=== PATIENT | male | born 1960 | race Caucasian/White ===

== ENCOUNTER 2019-12-21 14:37 | Inpatient (IN) | payer MEDICAID ==
[~2019-12-21] VITALS: Ht 172.7 cm; Wt 79.6 kg
--- NOTE | 2019-12-21 14:41 | NUR ---
PT BIB EMS with C/O back pain that radiates to his chest. pt states that he moved to [facility] 2 months ago and began "having lots of trouble" pt changed into hospital gown and connected to monitors. Call light within reach.
--- NOTE | 2019-12-21 16:28 | NUR ---
lab and xray at bedside.
[2019-12-21 16:39] LABS: MEAN CORPUSCULAR HEMOGLOBIN 27.5 pg (27.5-34.5); MEAN CORPUSCULAR VOLUME 85.8 fL (81-97); MEAN PLATELET VOLUME 7.5 fL (7.4-10.4); PLATELET COUNT 399 x10^3/uL (130-400); RED BLOOD COUNT 4.86 x10^6/uL (4.38-5.82); RED CELL DISTRIBUTION WIDTH 16.4 % (9.4-14.8)
[2019-12-21 16:44] LABS: ALANINE AMINOTRANSFERASE 45 U/L (12-78); ALBUMIN 3.1 g/dL (3.4-5.0); ANION GAP 7 mmol/L (5-15); CALCIUM 9.3 mg/dL (8.5-10.1); CHLORIDE 109 mmol/L (98-107)
[2019-12-21 16:49] LABS: ALKALINE PHOSPHATASE 106 U/L (45-117); BILIRUBIN,TOTAL 0.5 mg/dL (0.2-1.0); TOTAL PROTEIN 7.6 g/dL (6.4-8.2); TROPONIN I < 0.015 ng/mL (0.000-0.045)
[2019-12-21 17:05] LABS: BASOPHILS # (AUTO) 0.09 x10^3/uL (0-0.1); BASOPHILS % (AUTO) 1 % (0-1); EOSINOPHILS # (AUTO) 0.01 x10^3/uL (0-0.4); EOSINOPHILS % (AUTO) 0 % (1-7); LYMPHOCYTES # (AUTO) 1.64 x10^3/uL (1-3.4); LYMPHOCYTES % (AUTO) 10 % (22-44); MD SCAN; MONOCYTES # (AUTO) 1.06 x10^3/uL (0.2-0.8); MONOCYTES % (AUTO) 6 % (2-9); NEUTROPHILS # (AUTO) 14.17 x10^3/uL (1.8-6.8); NEUTROPHILS % (AUTO) 84 % (42-75)
[2019-12-21] MEDS ORDERED: AZITHROMYCIN 500 MG in SODIUM CHLORIDE 0.9% 250 ML IV ONE (17:11)
--- NOTE | 2019-12-21 18:53 | NUR ---
BEDSIDE REPORT FROM ADE GIRON, PT CARE TRANSFERRED AT THIS TIME.
--- NOTE | 2019-12-21 19:15 | NUR ---
RN TO BEDSIDE TO UPDATE PT ON POC. PT COMPLAINING OF 10/10 PAIN AT THIS TIME. PT SITTING UP IN [facility], YELLING AT THIS RN "WELL SHE TOLD ME SHE WAS GONNA GET SOMETHING FOR ME!!! AND THEN SHE JUST BYPASSED ME" THIS RN INFORMED PT SHE WOULD LOOK INTO GETTING HIM SOMETHING FOR PAIN. NAD, WAITING FOR ADMIT BED. WCTM.
[2019-12-21] MEDS ORDERED: PREG150C PO (19:37)
[2019-12-21] MEDS ORDERED: HYDR-3245 PO (19:37)
[2019-12-21] MEDS ORDERED: LISI-170 PO (19:37)
[2019-12-21] MEDS ORDERED: ALBU0.63 NEB (19:42)
--- NOTE | 2019-12-21 19:42 | NUR ---
report called to bri woodward, pt care to be transferred once arriving to the floor. pt states he began to feel more SOB, pt O2 sats at 95%, placed on 2L NC for comfort. PAT.
[2019-12-21] MEDS ORDERED: HYDROmorphone 1 MG/ML, 1ML INJ ONE (19:52)
--- NOTE | 2019-12-21 19:57 | NUR ---
pt medicated per mar for pain, ready to transfer to floor at this time. nad. appears comfortable, denies additional SOB at this time. WCTM.
[2019-12-21] MEDS ORDERED: HYDROmorphone 2 MG/ML, 1ML IVPush PRN (20:00)
[2019-12-21] MEDS: AZITHROMYCIN 500 MG in SODIUM CHLORIDE 0.9% 250 ML IV SCH (20:05)
--- NOTE | 2019-12-21 20:28 | NUR ---
pt now to go to normal floor and no longer covid unit. pt updated on poc. wctm. waiting for bed.
--- NOTE | 2019-12-21 20:29 | NUR ---
pt states pain is decreased at this time. wctm.
[2019-12-21] MEDS ORDERED: BISACODYL 10 MG SUPP PR PRN (20:30)
[2019-12-21] MEDS ORDERED: ACETAMINOPHEN 325 MG TABLET PO PRN (20:30)
[2019-12-21] MEDS ORDERED: ONDANSETRON ODT 4 MG PO PRN (20:30)
[2019-12-21] MEDS ORDERED: hydrALAzine 20 MG/ML, 1ML IVPush PRN (20:30)
[2019-12-21] MEDS ORDERED: GUAIFENESIN/DM 200-20MG, 10ML UDC PO PRN (20:30)
[2019-12-21] MEDS ORDERED: POLYETHYLENE GLYCOL 17 GM PACKET PO PRN (20:30)
[2019-12-21] MEDS ORDERED: HEPARIN 5,000 UNITS/ML, 1ML ONE (20:51)
[2019-12-21] MEDS ORDERED: LISINOPRIL 20 MG TABLET ONE (20:51)
[2019-12-21] MEDS ORDERED: NS + 20MEQ KCL 1,000 ML IV ONE (20:52)
[2019-12-21] MEDS: NS + 20MEQ KCL 1,000 ML IV SCH (21:01)
[2019-12-21] MEDS: HEPARIN 5,000 UNITS/ML, 1ML SQ SCH (21:01)
[2019-12-21] MEDS: LISINOPRIL 20 MG TABLET PO SCH (21:01)
--- NOTE | 2019-12-21 21:09 | NUR ---
pt medicated per jun,, waiting for transfer to floor, this rn attempted to call report 2 times at this point. pt VSHay. PAT.
--- NOTE | 2019-12-21 21:11 | NUR ---
pt given coffee per request. no change in condition at this time. wctm.
--- NOTE | 2019-12-21 21:27 | NUR ---
report called to travis woodward, pt care to be transferred upon arrival to the floor.
[2019-12-21 21:37] VITALS: BP 156/84
[2019-12-21] MEDS: HYDROcodone/APAP 10/325 MG TABLET PO PRN (22:21)
[2019-12-21] MEDS: PREGABALIN 150 MG CAPSULE PO SCH (23:02)
[2019-12-22] MEDS: ALBUTEROL-IPRATROPIUM MDI INH INH SCH ×5 (01:21→20:55)
[2019-12-22 02:00] VITALS: BP 127/69
[2019-12-22] MEDS: HEPARIN 5,000 UNITS/ML, 1ML SQ SCH ×3 (04:40→20:53)
[2019-12-22] MEDS: HYDROcodone/APAP 10/325 MG TABLET PO PRN ×4 (04:41→22:17)
[2019-12-22 05:53] LABS: BASOPHILS # (AUTO) 0.05 x10^3/uL (0-0.1); BASOPHILS % (AUTO) 0 % (0-1); EOSINOPHILS # (AUTO) 0.22 x10^3/uL (0-0.4); EOSINOPHILS % (AUTO) 2 % (1-7); LYMPHOCYTES # (AUTO) 2.33 x10^3/uL (1-3.4); LYMPHOCYTES % (AUTO) 16 % (22-44); MD NO; MEAN CORPUSCULAR HEMOGLOBIN 27.5 pg (27.5-34.5); MEAN PLATELET VOLUME 7.8 fL (7.4-10.4); MONOCYTES # (AUTO) 1.41 x10^3/uL (0.2-0.8); MONOCYTES % (AUTO) 10 % (2-9); NEUTROPHILS # (AUTO) 10.51 x10^3/uL (1.8-6.8); NEUTROPHILS % (AUTO) 72 % (42-75); PLATELET COUNT 340 x10^3/uL (130-400); RED BLOOD COUNT 4.33 x10^6/uL (4.38-5.82); RED CELL DISTRIBUTION WIDTH 16.8 % (9.4-14.8)
[2019-12-22 06:03] LABS: ANION GAP 6 mmol/L (5-15); CALCIUM 9.1 mg/dL (8.5-10.1); CHLORIDE 110 mmol/L (98-107)
[2019-12-22 06:04] LABS: CREATININE 0.63 mg/dL (0.7-1.3)
[2019-12-22] MEDS: NS + 20MEQ KCL 1,000 ML IV SCH ×2 (06:04→18:02)
[2019-12-22 07:44] VITALS: BP 151/76
[2019-12-22 08:27] VITALS: BP 166/90
[2019-12-22] MEDS: SENNA/DOCUSATE TABLET PO SCH (08:28)
[2019-12-22] MEDS: LISINOPRIL 20 MG TABLET PO SCH ×2 (08:28→20:54)
[2019-12-22] MEDS: PREGABALIN 150 MG CAPSULE PO SCH ×2 (08:28→20:53)
[2019-12-22] MEDS: GUAIFENESIN ER 600 MG TABLET PO SCH ×2 (08:55→20:53)
[2019-12-22 14:13] VITALS: BP 150/87
[2019-12-22 19:19] VITALS: BP 167/92
[2019-12-22] MEDS: AZITHROMYCIN 500 MG in SODIUM CHLORIDE 0.9% 250 ML IV SCH (20:53)
[2019-12-23] MEDS: NS + 20MEQ KCL 1,000 ML IV SCH (03:58)
[2019-12-23 04:12] VITALS: BP 188/110
[2019-12-23] MEDS: HYDROcodone/APAP 10/325 MG TABLET PO PRN ×4 (04:17→18:42)
[2019-12-23] MEDS: ALBUTEROL-IPRATROPIUM MDI INH INH SCH ×4 (04:20→21:58)
[2019-12-23] MEDS: HEPARIN 5,000 UNITS/ML, 1ML SQ SCH ×2 (04:20→12:47)
[2019-12-23 05:06] VITALS: BP 168/101
[2019-12-23 06:13] VITALS: BP 138/81
[2019-12-23] MEDS ORDERED: VANCOMYCIN PER PHARMACY MC PRN (08:30)
[2019-12-23] MEDS: LISINOPRIL 20 MG TABLET PO SCH ×2 (09:06→21:00)
[2019-12-23] MEDS: GUAIFENESIN ER 600 MG TABLET PO SCH ×2 (09:06→21:00)
[2019-12-23] MEDS: PREGABALIN 150 MG CAPSULE PO SCH ×2 (09:06→21:00)
[2019-12-23] MEDS: SENNA/DOCUSATE TABLET PO SCH (09:07)
[2019-12-23] MEDS ORDERED: CEFTRIAXONE PMX 2GM/50ML 50 ML IV SCH (09:30)
[2019-12-23] MEDS ORDERED: PHARMACOKINETIC MONITORING MC PRN (09:30)
[2019-12-23] MEDS ORDERED: PHARMACOKINETIC CONSULTATION MC ONE (09:30)
[2019-12-23] MEDS ORDERED: VANCOMYCIN 1,900 MG in SODIUM CHLORIDE 0.9% 250 ML IV ONE (10:00)
[2019-12-23 10:01] LABS: BASOPHILS # (AUTO) 0.02 x10^3/uL (0-0.1); BASOPHILS % (AUTO) 0 % (0-1); EOSINOPHILS # (AUTO) 0.18 x10^3/uL (0-0.4); EOSINOPHILS % (AUTO) 2 % (1-7); LYMPHOCYTES # (AUTO) 1.51 x10^3/uL (1-3.4); LYMPHOCYTES % (AUTO) 13 % (22-44); MD NO; MEAN CORPUSCULAR HEMOGLOBIN 27.3 pg (27.5-34.5); MEAN CORPUSCULAR HGB CONC 31.6 g/dL (33.2-36.2); MEAN CORPUSCULAR VOLUME 86.6 fL (81-97); MEAN PLATELET VOLUME 7.3 fL (7.4-10.4); MONOCYTES % (AUTO) 9 % (2-9); NEUTROPHILS # (AUTO) 8.74 x10^3/uL (1.8-6.8); NEUTROPHILS % (AUTO) 76 % (42-75); PLATELET COUNT 344 x10^3/uL (130-400); RED BLOOD COUNT 4.51 x10^6/uL (4.38-5.82); RED CELL DISTRIBUTION WIDTH 16.4 % (9.4-14.8)
[2019-12-23] MEDS ORDERED: KETOROLAC 30 MG/1 ML IM PRN (13:00)
[2019-12-23 14:00] VITALS: BP 173/77
[2019-12-23] MEDS: CYCLOBENZAPRINE 10 MG TABLET PO SCH ×2 (15:56→21:00)
[2019-12-23] MEDS ORDERED: GADOTERATE 7.5 MMOL/15 ML SYR ONE (18:20)
[2019-12-23 19:13] VITALS: BP 176/100
[2019-12-23 20:14] VITALS: BP 168/88
[2019-12-23 20:25] LABS: INTERNATIONAL NORMALIZED RATIO 1.01 (0.93-1.1); PROTHROMBIN TIME 10.4 Seconds (9.6-11.5)
[2019-12-23] MEDS: POLYETHYLENE GLYCOL 17 GM PACKET NG SCH (21:00)
[2019-12-23] MEDS: KETOROLAC 30 MG/1 ML IVPush PRN (22:47)
[2019-12-23] MEDS: DEXAMETHASONE 10 MG in SODIUM CHLORIDE 0.9% 50 ML IV ONE (23:57)
[2019-12-24] MEDS: DEXAMETHASONE 10 MG in SODIUM CHLORIDE 0.9% 50 ML IV ONE
[2019-12-24] MEDS: VANCOMYCIN 1,500 MG in SODIUM CHLORIDE 0.9% 250 ML IV SCH ×2 (00:16→22:38)
[2019-12-24] MEDS: NS + 20MEQ KCL 1,000 ML IV SCH (00:16)
[2019-12-24 02:36] VITALS: BP 168/77
[2019-12-24] MEDS: ALBUTEROL-IPRATROPIUM MDI INH INH SCH ×3 (06:06→19:17)
[2019-12-24] MEDS: KETOROLAC 30 MG/1 ML IVPush PRN (06:40)
[2019-12-24 07:58] VITALS: BP 173/98
[2019-12-24] MEDS ORDERED: EPINEPHRINE 1 MG/ML, 1ML ONE (08:02)
[2019-12-24] MEDS ORDERED: VANCOMYCIN 1,000 MG ONE ×2 (08:02→10:40)
[2019-12-24] MEDS ORDERED: THROMBIN 5,000 UNIT VIAL TP ONE (08:02)
[2019-12-24] MEDS ORDERED: BACITRACIN 50,000 UNIT ONE (08:02)
[2019-12-24] MEDS ORDERED: BUPIVACAINE/PF 0.25% ONE (08:02)
[2019-12-24] MEDS: POLYETHYLENE GLYCOL 17 GM PACKET NG SCH ×2 (08:29→22:03)
[2019-12-24] MEDS: CYCLOBENZAPRINE 10 MG TABLET PO SCH ×3 (08:29→22:04)
[2019-12-24] MEDS: GUAIFENESIN ER 600 MG TABLET PO SCH ×2 (08:29→22:04)
[2019-12-24] MEDS: LISINOPRIL 20 MG TABLET PO SCH ×2 (08:30→22:04)
[2019-12-24] MEDS: PREGABALIN 150 MG CAPSULE PO SCH ×2 (08:30→22:04)
[2019-12-24] MEDS: SENNA/DOCUSATE TABLET PO SCH (08:30)
[2019-12-24] MEDS ORDERED: MORPHINE SULFATE 4 MG/ML, 1ML IVPush PRN (09:00)
[2019-12-24] MEDS ORDERED: CHLORHEXIDINE 15 ML UDC MM ONE (09:30)
[2019-12-24] MEDS ORDERED: MIDAZOLAM 1 MG/ML, 2ML ONE (09:51)
[2019-12-24] MEDS ORDERED: CHLORHEXIDINE 15 ML UDC ONE (09:51)
[2019-12-24] MEDS ORDERED: FENTANYL PF 250 MCG/5ML ONE (09:52)
[2019-12-24] MEDS ORDERED: PHENYLEPHRINE 10 MG/ML ONE (10:12)
[2019-12-24] MEDS ORDERED: HYDROmorphone 1 MG/ML, 1ML INJ IVPush PRN (10:30)
[2019-12-24] MEDS ORDERED: HYDROcodone/APAP 7.5-325MG/15ML UDC PO PRN (10:30)
[2019-12-24] MEDS ORDERED: LABETALOL 5MG/ML, 20ML IV PRN (10:30)
[2019-12-24] MEDS ORDERED: MEPERIDINE/PF 25MG/0.5ML IVPush PRN (10:30)
[2019-12-24] MEDS: CEFTRIAXONE PMX 2GM/50ML 50 ML IV SCH ×2 (10:30→22:04)
[2019-12-24] MEDS ORDERED: ONDANSETRON 2MG/ML, 2ML IVPush PRN (10:30)
[2019-12-24] MEDS ORDERED: morphine SULFATE 10 MG/ML, 1ML IVPush PRN (10:30)
[2019-12-24] MEDS ORDERED: hydrALAzine 20 MG/ML, 1ML IV PRN (10:30)
[2019-12-24] MEDS ORDERED: PROPOFOL 10 MG/ML, 20ML ONE (11:02)
[2019-12-24] MEDS ORDERED: NEOSTIGMINE 1 MG/ML, 10ML ONE (11:02)
[2019-12-24] MEDS ORDERED: GLYCOPYRROLATE 0.2MG/1ML, 5ML ONE (11:02)
[2019-12-24] MEDS ORDERED: CEFAZOLIN 1,000 MG ONE (11:02)
[2019-12-24] MEDS ORDERED: ROCURONIUM 10MG/ML,5ML ONE (11:02)
[2019-12-24] MEDS ORDERED: NEOSPORIN OINT, 15GM ONE (12:58)
[2019-12-24] MEDS ORDERED: FENTANYL PF 100 MCG/2ML ONE (13:42)
[2019-12-24] MEDS ORDERED: HYDROcodone/APAP 7.5-325MG/15ML UDC ONE (13:42)
[2019-12-24] MEDS: FENTANYL PF 100 MCG/2ML IV PRN ×2 (13:44→14:04)
[2019-12-24 15:00] VITALS: BP 125/79
[2019-12-24] MEDS: MORPHINE SULFATE 4 MG/ML, 1ML IVPush PRN ×2 (18:02→20:17)
[2019-12-24] MEDS: SODIUM CHLORIDE 0.9% 1,000 ML IV SCH (18:05)
[2019-12-24 20:19] VITALS: BP 132/78
[2019-12-24] MEDS ORDERED: METHOCARBAMOL 750 MG TABLET PO SCH (21:00)
[2019-12-24] MEDS ORDERED: CEFTRIAXONE PMX 2GM/50ML 50 ML IV SCH (22:00)
[2019-12-24] MEDS: HYDROcodone/APAP 10/325 MG TABLET PO PRN (22:09)
[2019-12-25 01:12] VITALS: BP 150/81
[2019-12-25] MEDS: MORPHINE SULFATE 4 MG/ML, 1ML IVPush PRN (01:21)
[2019-12-25 04:15] VITALS: BP 121/83
[2019-12-25] MEDS: HYDROcodone/APAP 10/325 MG TABLET PO PRN ×4 (04:22→19:31)
[2019-12-25] MEDS: SODIUM CHLORIDE 0.9% 1,000 ML IV SCH ×2 (04:23→19:31)
[2019-12-25 05:50] LABS: BASOPHILS # (AUTO) 0.01 x10^3/uL (0-0.1); BASOPHILS % (AUTO) 0 % (0-1); EOSINOPHILS # (AUTO) 0.35 x10^3/uL (0-0.4); EOSINOPHILS % (AUTO) 3 % (1-7); LYMPHOCYTES # (AUTO) 1.65 x10^3/uL (1-3.4); LYMPHOCYTES % (AUTO) 12 % (22-44); MD NO; MEAN CORPUSCULAR HEMOGLOBIN 27.6 pg (27.5-34.5); MEAN CORPUSCULAR HGB CONC 32.1 g/dL (33.2-36.2); MEAN CORPUSCULAR VOLUME 86.1 fL (81-97); MEAN PLATELET VOLUME 7.7 fL (7.4-10.4); MONOCYTES # (AUTO) 0.93 x10^3/uL (0.2-0.8); MONOCYTES % (AUTO) 7 % (2-9); NEUTROPHILS # (AUTO) 10.31 x10^3/uL (1.8-6.8); NEUTROPHILS % (AUTO) 78 % (42-75); PLATELET COUNT 324 x10^3/uL (130-400); RED BLOOD COUNT 3.95 x10^6/uL (4.38-5.82); RED CELL DISTRIBUTION WIDTH 16.6 % (9.4-14.8)
[2019-12-25 05:57] LABS: ALBUMIN 2.4 g/dL (3.4-5.0); ANION GAP 6 mmol/L (5-15); CALCIUM 8.7 mg/dL (8.5-10.1); CHLORIDE 106 mmol/L (98-107)
[2019-12-25] MEDS: ALBUTEROL-IPRATROPIUM MDI INH INH SCH ×4 (06:07→20:58)
[2019-12-25 06:09] LABS: ALANINE AMINOTRANSFERASE 31 U/L (12-78); ALKALINE PHOSPHATASE 78 U/L (45-117); BILIRUBIN,TOTAL 0.6 mg/dL (0.2-1.0); CREATININE 0.66 mg/dL (0.7-1.3); TOTAL PROTEIN 6.1 g/dL (6.4-8.2)
[2019-12-25 08:42] VITALS: BP 130/87
[2019-12-25] MEDS: POLYETHYLENE GLYCOL 17 GM PACKET NG SCH ×2 (08:52→20:56)
[2019-12-25] MEDS: SENNA/DOCUSATE TABLET PO SCH (08:52)
[2019-12-25] MEDS: GUAIFENESIN ER 600 MG TABLET PO SCH ×2 (08:52→20:56)
[2019-12-25] MEDS: CYCLOBENZAPRINE 10 MG TABLET PO SCH ×3 (08:52→20:56)
[2019-12-25] MEDS: PREGABALIN 150 MG CAPSULE PO SCH ×2 (08:53→20:56)
[2019-12-25] MEDS: LISINOPRIL 20 MG TABLET PO SCH ×2 (08:53→20:56)
[2019-12-25] MEDS: CEFTRIAXONE PMX 2GM/50ML 50 ML IV SCH ×2 (10:31→21:58)
[2019-12-25] MEDS: VANCOMYCIN 1,500 MG in SODIUM CHLORIDE 0.9% 250 ML IV SCH ×2 (11:03→23:16)
[2019-12-25 14:55] VITALS: BP 124/83
[2019-12-25 21:03] VITALS: BP 141/82
[2019-12-26 01:32] VITALS: BP 131/81
[2019-12-26] MEDS: HYDROcodone/APAP 10/325 MG TABLET PO PRN ×4 (02:40→18:40)
[2019-12-26] MEDS: SODIUM CHLORIDE 0.9% 1,000 ML IV SCH ×2 (05:18→16:50)
[2019-12-26] MEDS: ALBUTEROL-IPRATROPIUM MDI INH INH SCH ×4 (05:18→21:32)
[2019-12-26 05:28] LABS: BASOPHILS # (AUTO) 0.04 x10^3/uL (0-0.1); BASOPHILS % (AUTO) 0 % (0-1); EOSINOPHILS # (AUTO) 0.25 x10^3/uL (0-0.4); EOSINOPHILS % (AUTO) 2 % (1-7); LYMPHOCYTES # (AUTO) 1.85 x10^3/uL (1-3.4); LYMPHOCYTES % (AUTO) 12 % (22-44); MD NO; MEAN CORPUSCULAR HEMOGLOBIN 27.4 pg (27.5-34.5); MEAN CORPUSCULAR HGB CONC 31.8 g/dL (33.2-36.2); MEAN CORPUSCULAR VOLUME 86.3 fL (81-97); MEAN PLATELET VOLUME 7.3 fL (7.4-10.4); MONOCYTES # (AUTO) 1.27 x10^3/uL (0.2-0.8); MONOCYTES % (AUTO) 8 % (2-9); NEUTROPHILS # (AUTO) 11.76 x10^3/uL (1.8-6.8); NEUTROPHILS % (AUTO) 78 % (42-75); PLATELET COUNT 331 x10^3/uL (130-400); RED BLOOD COUNT 3.93 x10^6/uL (4.38-5.82); RED CELL DISTRIBUTION WIDTH 16.6 % (9.4-14.8)
[2019-12-26 05:39] LABS: ANION GAP 4 mmol/L (5-15); CHLORIDE 105 mmol/L (98-107); CREATININE 0.56 mg/dL (0.7-1.3)
[2019-12-26 08:26] VITALS: BP 145/81
[2019-12-26] MEDS: POLYETHYLENE GLYCOL 17 GM PACKET NG SCH ×2 (09:08→21:00)
[2019-12-26] MEDS: SENNA/DOCUSATE TABLET PO SCH (09:09)
[2019-12-26] MEDS: CYCLOBENZAPRINE 10 MG TABLET PO SCH ×3 (09:09→21:31)
[2019-12-26] MEDS: PREGABALIN 150 MG CAPSULE PO SCH ×2 (09:09→21:31)
[2019-12-26] MEDS: GUAIFENESIN ER 600 MG TABLET PO SCH ×2 (09:09→21:32)
[2019-12-26] MEDS: LISINOPRIL 20 MG TABLET PO SCH ×2 (09:09→21:32)
[2019-12-26] MEDS: CEFTRIAXONE PMX 2GM/50ML 50 ML IV SCH ×2 (09:17→21:32)
[2019-12-26] MEDS: VANCOMYCIN 1,500 MG in SODIUM CHLORIDE 0.9% 250 ML IV SCH ×2 (10:51→23:02)
[2019-12-26 13:32] VITALS: BP 118/79
[2019-12-26 20:57] VITALS: BP 139/80
[2019-12-27 01:10] VITALS: BP 139/83
[2019-12-27] MEDS: HYDROcodone/APAP 10/325 MG TABLET PO PRN ×5 (02:37→20:23)
[2019-12-27] MEDS: SODIUM CHLORIDE 0.9% 1,000 ML IV SCH (04:28)
[2019-12-27] MEDS: ALBUTEROL-IPRATROPIUM MDI INH INH SCH ×4 (05:23→20:27)
[2019-12-27 05:44] LABS: BASOPHILS # (AUTO) 0.03 x10^3/uL (0-0.1); BASOPHILS % (AUTO) 0 % (0-1); EOSINOPHILS # (AUTO) 0.51 x10^3/uL (0-0.4); EOSINOPHILS % (AUTO) 4 % (1-7); LYMPHOCYTES # (AUTO) 1.52 x10^3/uL (1-3.4); LYMPHOCYTES % (AUTO) 12 % (22-44); MD NO; MEAN CORPUSCULAR HEMOGLOBIN 27.8 pg (27.5-34.5); MEAN CORPUSCULAR HGB CONC 32.5 g/dL (33.2-36.2); MEAN CORPUSCULAR VOLUME 85.5 fL (81-97); MEAN PLATELET VOLUME 7.6 fL (7.4-10.4); MONOCYTES % (AUTO) 8 % (2-9); NEUTROPHILS # (AUTO) 9.88 x10^3/uL (1.8-6.8); NEUTROPHILS % (AUTO) 76 % (42-75); PLATELET COUNT 318 x10^3/uL (130-400); RED BLOOD COUNT 3.72 x10^6/uL (4.38-5.82); RED CELL DISTRIBUTION WIDTH 16.1 % (9.4-14.8)
[2019-12-27 05:55] LABS: ANION GAP 4 mmol/L (5-15); CALCIUM 9.3 mg/dL (8.5-10.1); CHLORIDE 106 mmol/L (98-107)
[2019-12-27 06:47] VITALS: BP 150/88
[2019-12-27] MEDS: PREGABALIN 150 MG CAPSULE PO SCH ×2 (09:12→20:24)
[2019-12-27] MEDS: LISINOPRIL 20 MG TABLET PO SCH ×2 (09:12→20:23)
[2019-12-27] MEDS: GUAIFENESIN ER 600 MG TABLET PO SCH ×2 (09:12→20:23)
[2019-12-27] MEDS: CYCLOBENZAPRINE 10 MG TABLET PO SCH ×3 (09:12→20:22)
[2019-12-27] MEDS: POLYETHYLENE GLYCOL 17 GM PACKET NG SCH ×2 (09:12→20:27)
[2019-12-27] MEDS: CEFTRIAXONE PMX 2GM/50ML 50 ML IV SCH ×2 (09:15→21:18)
[2019-12-27] MEDS: SENNA/DOCUSATE TABLET PO SCH (11:12)
[2019-12-27] MEDS: VANCOMYCIN 1,500 MG in SODIUM CHLORIDE 0.9% 250 ML IV SCH ×2 (11:12→23:12)
[2019-12-27] MEDS: ENOXAPARIN 40 MG/0.4 ML SQ SCH (12:22)
[2019-12-27 13:42] VITALS: BP 129/81
[2019-12-27 20:02] VITALS: BP 135/82
[2019-12-28 01:19] VITALS: BP 154/81
[2019-12-28] MEDS: HYDROcodone/APAP 10/325 MG TABLET PO PRN ×5 (01:30→19:40)
[2019-12-28] MEDS: ALBUTEROL-IPRATROPIUM MDI INH INH SCH ×4 (05:34→19:42)
[2019-12-28 06:20] LABS: BASOPHILS # (AUTO) 0.05 x10^3/uL (0-0.1); BASOPHILS % (AUTO) 0 % (0-1); EOSINOPHILS % (AUTO) 4 % (1-7); LYMPHOCYTES # (AUTO) 1.38 x10^3/uL (1-3.4); LYMPHOCYTES % (AUTO) 11 % (22-44); MD NO; MEAN CORPUSCULAR HEMOGLOBIN 27.5 pg (27.5-34.5); MEAN CORPUSCULAR HGB CONC 31.6 g/dL (33.2-36.2); MEAN CORPUSCULAR VOLUME 86.8 fL (81-97); MEAN PLATELET VOLUME 7.6 fL (7.4-10.4); MONOCYTES % (AUTO) 10 % (2-9); NEUTROPHILS % (AUTO) 76 % (42-75); PLATELET COUNT 370 x10^3/uL (130-400); RED BLOOD COUNT 3.83 x10^6/uL (4.38-5.82); RED CELL DISTRIBUTION WIDTH 16.5 % (9.4-14.8)
[2019-12-28 06:30] LABS: ALBUMIN 2.4 g/dL (3.4-5.0); ANION GAP 6 mmol/L (5-15); CALCIUM 9.1 mg/dL (8.5-10.1); CHLORIDE 106 mmol/L (98-107)
[2019-12-28 06:38] LABS: ALANINE AMINOTRANSFERASE 35 U/L (12-78); ALKALINE PHOSPHATASE 76 U/L (45-117); BILIRUBIN,TOTAL 0.2 mg/dL (0.2-1.0); CREATININE 0.56 mg/dL (0.7-1.3); TOTAL PROTEIN 6.2 g/dL (6.4-8.2)
[2019-12-28 06:47] VITALS: BP 148/89
[2019-12-28 07:06] LABS: HCT (SEDRATE) 33.3 % (39.2-51.8)
[2019-12-28] MEDS: CYCLOBENZAPRINE 10 MG TABLET PO SCH ×3 (08:52→19:40)
[2019-12-28] MEDS: GUAIFENESIN ER 600 MG TABLET PO SCH ×2 (08:52→19:41)
[2019-12-28] MEDS: POLYETHYLENE GLYCOL 17 GM PACKET NG SCH ×2 (08:53→19:42)
[2019-12-28] MEDS: SENNA/DOCUSATE TABLET PO SCH (08:53)
[2019-12-28] MEDS: LISINOPRIL 20 MG TABLET PO SCH ×2 (08:53→19:40)
[2019-12-28] MEDS: PREGABALIN 150 MG CAPSULE PO SCH ×2 (08:53→19:41)
[2019-12-28] MEDS: CEFTRIAXONE PMX 2GM/50ML 50 ML IV SCH ×2 (09:24→21:26)
[2019-12-28] MEDS: ENOXAPARIN 40 MG/0.4 ML SQ SCH (11:30)
[2019-12-28] MEDS: VANCOMYCIN 1,500 MG in SODIUM CHLORIDE 0.9% 250 ML IV SCH ×2 (11:30→23:05)
[2019-12-28 12:49] VITALS: BP 129/76
[2019-12-28 19:13] VITALS: BP 127/72
[2019-12-29 01:07] VITALS: BP 122/69
[2019-12-29] MEDS: HYDROcodone/APAP 10/325 MG TABLET PO PRN ×5 (04:18→22:29)
[2019-12-29] MEDS: ALBUTEROL-IPRATROPIUM MDI INH INH SCH ×4 (05:07→22:28)
[2019-12-29 05:27] LABS: BASOPHILS # (AUTO) 0.06 x10^3/uL (0-0.1); BASOPHILS % (AUTO) 1 % (0-1); EOSINOPHILS # (AUTO) 0.68 x10^3/uL (0-0.4); EOSINOPHILS % (AUTO) 5 % (1-7); LYMPHOCYTES # (AUTO) 1.65 x10^3/uL (1-3.4); LYMPHOCYTES % (AUTO) 13 % (22-44); MD NO; MEAN CORPUSCULAR HEMOGLOBIN 28.2 pg (27.5-34.5); MEAN CORPUSCULAR HGB CONC 32.8 g/dL (33.2-36.2); MEAN CORPUSCULAR VOLUME 86.1 fL (81-97); MEAN PLATELET VOLUME 7.8 fL (7.4-10.4); MONOCYTES % (AUTO) 11 % (2-9); NEUTROPHILS # (AUTO) 9.11 x10^3/uL (1.8-6.8); NEUTROPHILS % (AUTO) 71 % (42-75); PLATELET COUNT 432 x10^3/uL (130-400); RED BLOOD COUNT 3.83 x10^6/uL (4.38-5.82); RED CELL DISTRIBUTION WIDTH 16.8 % (9.4-14.8)
[2019-12-29 05:34] LABS: ANION GAP 6 mmol/L (5-15); CALCIUM 9.2 mg/dL (8.5-10.1); CHLORIDE 104 mmol/L (98-107)
[2019-12-29 05:35] LABS: CREATININE 0.55 mg/dL (0.7-1.3)
[2019-12-29 07:54] VITALS: BP 144/88
[2019-12-29] MEDS: POLYETHYLENE GLYCOL 17 GM PACKET NG SCH ×2 (08:07→22:01)
[2019-12-29] MEDS: LISINOPRIL 20 MG TABLET PO SCH ×2 (08:08→22:02)
[2019-12-29] MEDS: PREGABALIN 150 MG CAPSULE PO SCH ×2 (08:08→22:02)
[2019-12-29] MEDS: SENNA/DOCUSATE TABLET PO SCH (08:08)
[2019-12-29] MEDS: GUAIFENESIN ER 600 MG TABLET PO SCH ×2 (08:08→22:01)
[2019-12-29] MEDS: CYCLOBENZAPRINE 10 MG TABLET PO SCH ×3 (08:08→22:01)
[2019-12-29] MEDS ORDERED: BISACODYL 10 MG SUPP PR PRN (08:30)
[2019-12-29] MEDS: CEFTRIAXONE PMX 2GM/50ML 50 ML IV SCH ×2 (09:28→22:01)
[2019-12-29] MEDS: VANCOMYCIN 1,500 MG in SODIUM CHLORIDE 0.9% 250 ML IV SCH ×2 (11:08→23:33)
[2019-12-29] MEDS: ENOXAPARIN 40 MG/0.4 ML SQ SCH (11:08)
[2019-12-29 13:19] VITALS: BP 118/76
[2019-12-29 19:20] VITALS: BP 112/58
[2019-12-30 01:48] VITALS: BP 151/89
[2019-12-30] MEDS: ALBUTEROL-IPRATROPIUM MDI INH INH SCH ×4 (06:28→20:55)
[2019-12-30] MEDS: HYDROcodone/APAP 10/325 MG TABLET PO PRN ×4 (06:29→20:53)
[2019-12-30 07:32] VITALS: BP 142/89
[2019-12-30] MEDS ORDERED: MAGNESIUM HYDROXIDE 8%, 30ML UDC PO PRN (08:00)
[2019-12-30] MEDS: POLYETHYLENE GLYCOL 17 GM PACKET NG SCH ×2 (09:22→20:51)
[2019-12-30] MEDS: GUAIFENESIN ER 600 MG TABLET PO SCH ×2 (09:23→20:53)
[2019-12-30] MEDS: CEFTRIAXONE PMX 2GM/50ML 50 ML IV SCH ×2 (09:23→20:55)
[2019-12-30] MEDS: LISINOPRIL 20 MG TABLET PO SCH ×2 (09:23→20:53)
[2019-12-30] MEDS: SENNA/DOCUSATE TABLET PO SCH (09:23)
[2019-12-30] MEDS: PREGABALIN 150 MG CAPSULE PO SCH ×2 (09:23→20:53)
[2019-12-30] MEDS: CYCLOBENZAPRINE 10 MG TABLET PO SCH ×3 (09:23→20:53)
[2019-12-30] MEDS: VANCOMYCIN 1,500 MG in SODIUM CHLORIDE 0.9% 250 ML IV SCH ×2 (10:59→22:27)
[2019-12-30] MEDS: ENOXAPARIN 40 MG/0.4 ML SQ SCH (11:02)
[2019-12-30 12:41] VITALS: BP 119/72
[2019-12-30 19:39] VITALS: BP 107/66
[2019-12-30] MEDS: MORPHINE SULFATE 4 MG/ML, 1ML IVPush PRN (20:20)
[2019-12-31 00:32] VITALS: BP 130/81
[2019-12-31] MEDS: HYDROcodone/APAP 10/325 MG TABLET PO PRN ×5 (01:02→20:03)
[2019-12-31] MEDS: MORPHINE SULFATE 4 MG/ML, 1ML IVPush PRN ×3 (04:35→22:43)
[2019-12-31] MEDS: ALBUTEROL-IPRATROPIUM MDI INH INH SCH ×4 (05:58→20:06)
[2019-12-31 07:15] VITALS: BP 117/76
[2019-12-31 07:39] LABS: BASOPHILS # (AUTO) 0.02 x10^3/uL (0-0.1); BASOPHILS % (AUTO) 0 % (0-1); EOSINOPHILS # (AUTO) 0.67 x10^3/uL (0-0.4); EOSINOPHILS % (AUTO) 7 % (1-7); LYMPHOCYTES # (AUTO) 1.74 x10^3/uL (1-3.4); LYMPHOCYTES % (AUTO) 18 % (22-44); MD NO; MEAN CORPUSCULAR HEMOGLOBIN 28.2 pg (27.5-34.5); MEAN CORPUSCULAR HGB CONC 32.9 g/dL (33.2-36.2); MEAN CORPUSCULAR VOLUME 85.9 fL (81-97); MEAN PLATELET VOLUME 7.5 fL (7.4-10.4); MONOCYTES # (AUTO) 1.32 x10^3/uL (0.2-0.8); MONOCYTES % (AUTO) 13 % (2-9); NEUTROPHILS # (AUTO) 6.15 x10^3/uL (1.8-6.8); NEUTROPHILS % (AUTO) 62 % (42-75); PLATELET COUNT 468 x10^3/uL (130-400); RED BLOOD COUNT 3.57 x10^6/uL (4.38-5.82); RED CELL DISTRIBUTION WIDTH 16.6 % (9.4-14.8)
[2019-12-31 07:42] LABS: ALANINE AMINOTRANSFERASE 46 U/L (12-78); ALBUMIN 2.4 g/dL (3.4-5.0); ANION GAP 4 mmol/L (5-15); CALCIUM 9.4 mg/dL (8.5-10.1); CHLORIDE 105 mmol/L (98-107); CREATININE 0.59 mg/dL (0.7-1.3)
[2019-12-31 07:48] LABS: ALKALINE PHOSPHATASE 84 U/L (45-117); BILIRUBIN,TOTAL 0.2 mg/dL (0.2-1.0); HCT (SEDRATE) 30.6 % (39.2-51.8); TOTAL PROTEIN 6.7 g/dL (6.4-8.2)
[2019-12-31] MEDS: SENNA/DOCUSATE TABLET PO SCH (08:54)
[2019-12-31] MEDS: CEFTRIAXONE PMX 2GM/50ML 50 ML IV SCH (08:54)
[2019-12-31] MEDS: POLYETHYLENE GLYCOL 17 GM PACKET NG SCH ×2 (08:54→20:04)
[2019-12-31] MEDS: CYCLOBENZAPRINE 10 MG TABLET PO SCH ×3 (08:54→20:03)
[2019-12-31] MEDS: GUAIFENESIN ER 600 MG TABLET PO SCH ×2 (08:55→20:03)
[2019-12-31] MEDS: PREGABALIN 150 MG CAPSULE PO SCH ×2 (08:55→20:03)
[2019-12-31] MEDS: LISINOPRIL 20 MG TABLET PO SCH ×2 (08:55→20:04)
[2019-12-31] MEDS: ENOXAPARIN 40 MG/0.4 ML SQ SCH (10:48)
[2019-12-31] MEDS: VANCOMYCIN 1,500 MG in SODIUM CHLORIDE 0.9% 250 ML IV SCH ×2 (10:48→22:43)
[2019-12-31 12:50] VITALS: BP 118/78
[2019-12-31 18:30] VITALS: BP 133/71
[2020-01-01] MEDS: HYDROcodone/APAP 10/325 MG TABLET PO PRN ×5 (01:01→21:35)
[2020-01-01 01:18] VITALS: BP 129/81
[2020-01-01] MEDS: ALBUTEROL-IPRATROPIUM MDI INH INH SCH ×4 (06:06→21:56)
[2020-01-01 08:12] VITALS: BP 133/84
[2020-01-01] MEDS: PREGABALIN 150 MG CAPSULE PO SCH ×2 (09:00→21:35)
[2020-01-01] MEDS: SENNA/DOCUSATE TABLET PO SCH (09:06)
[2020-01-01] MEDS: GUAIFENESIN ER 600 MG TABLET PO SCH ×2 (09:06→21:34)
[2020-01-01] MEDS: POLYETHYLENE GLYCOL 17 GM PACKET NG SCH ×2 (09:06→21:35)
[2020-01-01] MEDS: CYCLOBENZAPRINE 10 MG TABLET PO SCH ×3 (09:06→21:56)
[2020-01-01] MEDS: LISINOPRIL 20 MG TABLET PO SCH ×2 (09:07→21:35)
[2020-01-01] MEDS: VANCOMYCIN 1,500 MG in SODIUM CHLORIDE 0.9% 250 ML IV SCH ×2 (10:39→23:52)
[2020-01-01] MEDS: ENOXAPARIN 40 MG/0.4 ML SQ SCH (10:39)
[2020-01-01 12:50] VITALS: BP 135/90
[2020-01-01] MEDS: MORPHINE SULFATE 4 MG/ML, 1ML IVPush PRN (13:04)
[2020-01-01 19:16] VITALS: BP 122/77
[2020-01-02 00:34] VITALS: BP 130/86
[2020-01-02] MEDS: HYDROcodone/APAP 10/325 MG TABLET PO PRN ×4 (02:44→20:44)
[2020-01-02] MEDS: ALBUTEROL-IPRATROPIUM MDI INH INH SCH ×4 (06:08→22:47)
[2020-01-02 06:57] VITALS: BP 143/88
[2020-01-02] MEDS: POLYETHYLENE GLYCOL 17 GM PACKET NG SCH ×2 (08:15→20:44)
[2020-01-02] MEDS: PREGABALIN 150 MG CAPSULE PO SCH ×2 (08:16→20:44)
[2020-01-02] MEDS: GUAIFENESIN ER 600 MG TABLET PO SCH ×2 (08:16→20:44)
[2020-01-02] MEDS: SENNA/DOCUSATE TABLET PO SCH (08:16)
[2020-01-02] MEDS: CYCLOBENZAPRINE 10 MG TABLET PO SCH ×3 (08:16→22:47)
[2020-01-02] MEDS: LISINOPRIL 20 MG TABLET PO SCH ×2 (08:16→20:44)
[2020-01-02] MEDS: VANCOMYCIN 1,500 MG in SODIUM CHLORIDE 0.9% 250 ML IV SCH ×2 (11:29→23:23)
[2020-01-02] MEDS: ENOXAPARIN 40 MG/0.4 ML SQ SCH (11:34)
[2020-01-02 13:51] VITALS: BP 111/67
[2020-01-02 18:44] VITALS: BP 134/77
[2020-01-03 04:20] VITALS: BP 135/100
[2020-01-03] MEDS: HYDROcodone/APAP 10/325 MG TABLET PO PRN ×4 (04:30→19:34)
[2020-01-03] MEDS: ALBUTEROL-IPRATROPIUM MDI INH INH SCH ×4 (06:06→20:40)
[2020-01-03 07:44] VITALS: BP 135/80
[2020-01-03] MEDS: SENNA/DOCUSATE TABLET PO SCH (08:17)
[2020-01-03] MEDS: CYCLOBENZAPRINE 10 MG TABLET PO SCH ×3 (08:17→20:40)
[2020-01-03] MEDS: PREGABALIN 150 MG CAPSULE PO SCH ×2 (08:17→20:40)
[2020-01-03] MEDS: POLYETHYLENE GLYCOL 17 GM PACKET NG SCH ×2 (08:17→20:40)
[2020-01-03] MEDS: LISINOPRIL 20 MG TABLET PO SCH ×2 (08:17→20:40)
[2020-01-03] MEDS: GUAIFENESIN ER 600 MG TABLET PO SCH ×2 (08:17→20:40)
[2020-01-03] MEDS: VANCOMYCIN 1,500 MG in SODIUM CHLORIDE 0.9% 250 ML IV SCH ×2 (11:01→22:53)
[2020-01-03] MEDS: ENOXAPARIN 40 MG/0.4 ML SQ SCH (11:02)
[2020-01-03] MEDS: MORPHINE SULFATE 4 MG/ML, 1ML IVPush PRN (11:08)
[2020-01-03 11:29] LABS: BASOPHILS # (AUTO) 0.04 x10^3/uL (0-0.1); BASOPHILS % (AUTO) 0 % (0-1); EOSINOPHILS % (AUTO) 5 % (1-7); LYMPHOCYTES # (AUTO) 1.53 x10^3/uL (1-3.4); LYMPHOCYTES % (AUTO) 16 % (22-44); MD NO; MEAN CORPUSCULAR HEMOGLOBIN 27.2 pg (27.5-34.5); MEAN CORPUSCULAR HGB CONC 31.4 g/dL (33.2-36.2); MEAN CORPUSCULAR VOLUME 86.5 fL (81-97); MEAN PLATELET VOLUME 6.7 fL (7.4-10.4); MONOCYTES # (AUTO) 0.86 x10^3/uL (0.2-0.8); MONOCYTES % (AUTO) 9 % (2-9); NEUTROPHILS # (AUTO) 6.61 x10^3/uL (1.8-6.8); NEUTROPHILS % (AUTO) 69 % (42-75); PLATELET COUNT 635 x10^3/uL (130-400); RED BLOOD COUNT 4.02 x10^6/uL (4.38-5.82); RED CELL DISTRIBUTION WIDTH 16.9 % (9.4-14.8)
[2020-01-03 11:38] LABS: ALANINE AMINOTRANSFERASE 44 U/L (12-78); ALBUMIN 2.7 g/dL (3.4-5.0); ANION GAP 4 mmol/L (5-15); CALCIUM 9.6 mg/dL (8.5-10.1); CHLORIDE 106 mmol/L (98-107); CREATININE 0.67 mg/dL (0.7-1.3)
[2020-01-03 11:40] LABS: ALKALINE PHOSPHATASE 94 U/L (45-117); BILIRUBIN,TOTAL 0.2 mg/dL (0.2-1.0); TOTAL PROTEIN 7.3 g/dL (6.4-8.2)
[2020-01-03 12:55] VITALS: BP 127/75
[2020-01-03 21:14] VITALS: BP 112/76
[2020-01-04 02:10] VITALS: BP 110/70
[2020-01-04] MEDS: HYDROcodone/APAP 10/325 MG TABLET PO PRN ×4 (03:46→19:37)
[2020-01-04] MEDS: ALBUTEROL-IPRATROPIUM MDI INH INH SCH ×4 (05:39→20:52)
[2020-01-04 07:01] VITALS: BP 125/73
[2020-01-04] MEDS: SENNA/DOCUSATE TABLET PO SCH (08:28)
[2020-01-04] MEDS: POLYETHYLENE GLYCOL 17 GM PACKET NG SCH ×2 (08:28→20:50)
[2020-01-04] MEDS: CYCLOBENZAPRINE 10 MG TABLET PO SCH ×3 (08:29→20:50)
[2020-01-04] MEDS: GUAIFENESIN ER 600 MG TABLET PO SCH ×2 (08:29→20:50)
[2020-01-04] MEDS: LISINOPRIL 20 MG TABLET PO SCH ×2 (08:29→20:50)
[2020-01-04] MEDS: PREGABALIN 150 MG CAPSULE PO SCH ×2 (08:29→20:50)
[2020-01-04] MEDS: ENOXAPARIN 40 MG/0.4 ML SQ SCH (11:44)
[2020-01-04] MEDS: CEFAZOLIN 2,000 MG in SODIUM CHLORIDE 0.9% 50 ML IV SCH ×2 (11:44→19:37)
[2020-01-04 13:08] VITALS: BP 118/72
[2020-01-04 19:09] VITALS: BP 108/69
[2020-01-05 00:32] VITALS: BP 114/78
[2020-01-05] MEDS: CEFAZOLIN PMX 2GM/50ML 50 ML IVPB SCH ×3 (01:13→17:45)
[2020-01-05] MEDS: ALBUTEROL-IPRATROPIUM MDI INH INH SCH ×4 (05:46→22:13)
[2020-01-05] MEDS: HYDROcodone/APAP 10/325 MG TABLET PO PRN (05:50)
[2020-01-05 07:38] VITALS: BP 117/74
[2020-01-05] MEDS: SENNA/DOCUSATE TABLET PO SCH (10:14)
[2020-01-05] MEDS: LISINOPRIL 20 MG TABLET PO SCH ×2 (10:14→22:12)
[2020-01-05] MEDS: POLYETHYLENE GLYCOL 17 GM PACKET NG SCH ×2 (10:14→22:14)
[2020-01-05] MEDS: CYCLOBENZAPRINE 10 MG TABLET PO SCH ×3 (10:14→22:12)
[2020-01-05] MEDS: GUAIFENESIN ER 600 MG TABLET PO SCH ×2 (10:14→22:13)
[2020-01-05] MEDS: OXYcodone/APAP 5/325MG TABLET PO PRN ×2 (10:14→16:52)
[2020-01-05] MEDS: PREGABALIN 150 MG CAPSULE PO SCH ×2 (10:14→22:13)
[2020-01-05] MEDS: ENOXAPARIN 40 MG/0.4 ML SQ SCH (11:39)
[2020-01-05 13:50] VITALS: BP 108/73
[2020-01-05 19:50] VITALS: BP 118/73
[2020-01-06] MEDS: CEFAZOLIN PMX 2GM/50ML 50 ML IVPB SCH ×3 (01:47→17:51)
[2020-01-06] MEDS: OXYcodone/APAP 5/325MG TABLET PO PRN ×4 (01:48→22:11)
[2020-01-06 03:59] VITALS: BP 128/78
[2020-01-06] MEDS: ALBUTEROL-IPRATROPIUM MDI INH INH SCH ×4 (05:17→22:10)
[2020-01-06] MEDS: MORPHINE SULFATE 4 MG/ML, 1ML IVPush PRN (05:35)
[2020-01-06 07:32] VITALS: BP 118/52
[2020-01-06] MEDS: LISINOPRIL 20 MG TABLET PO SCH ×2 (08:48→22:11)
[2020-01-06] MEDS: PREGABALIN 150 MG CAPSULE PO SCH ×2 (08:48→22:11)
[2020-01-06] MEDS: CYCLOBENZAPRINE 10 MG TABLET PO SCH ×3 (08:48→22:11)
[2020-01-06] MEDS: GUAIFENESIN ER 600 MG TABLET PO SCH ×2 (08:48→22:11)
[2020-01-06] MEDS: POLYETHYLENE GLYCOL 17 GM PACKET NG SCH ×3 (08:48→21:00)
[2020-01-06] MEDS: SENNA/DOCUSATE TABLET PO SCH (08:49)
[2020-01-06] MEDS: ENOXAPARIN 40 MG/0.4 ML SQ SCH (11:21)
[2020-01-06] MEDS: HYDROcodone/APAP 10/325 MG TABLET PO PRN (12:31)
[2020-01-06 13:02] VITALS: BP 105/73
[2020-01-06 18:39] VITALS: BP 111/71
[2020-01-07 00:48] VITALS: BP 113/78
[2020-01-07] MEDS: MORPHINE SULFATE 4 MG/ML, 1ML IVPush PRN ×2 (00:51→17:18)
[2020-01-07] MEDS: CEFAZOLIN PMX 2GM/50ML 50 ML IVPB SCH ×3 (01:21→18:04)
[2020-01-07] MEDS: OXYcodone/APAP 5/325MG TABLET PO PRN (04:05)
[2020-01-07 04:36] LABS: BASOPHILS # (AUTO) 0.06 x10^3/uL (0-0.1); BASOPHILS % (AUTO) 0 % (0-1); EOSINOPHILS # (AUTO) 0.86 x10^3/uL (0-0.4); EOSINOPHILS % (AUTO) 6 % (1-7); HCT (SEDRATE) 33.1 % (39.2-51.8); LYMPHOCYTES # (AUTO) 1.87 x10^3/uL (1-3.4); LYMPHOCYTES % (AUTO) 14 % (22-44); MD NO; MEAN CORPUSCULAR HEMOGLOBIN 27.9 pg (27.5-34.5); MEAN CORPUSCULAR HGB CONC 32.5 g/dL (33.2-36.2); MEAN CORPUSCULAR VOLUME 85.8 fL (81-97); MEAN PLATELET VOLUME 7.5 fL (7.4-10.4); MONOCYTES # (AUTO) 0.95 x10^3/uL (0.2-0.8); MONOCYTES % (AUTO) 7 % (2-9); NEUTROPHILS # (AUTO) 9.75 x10^3/uL (1.8-6.8); NEUTROPHILS % (AUTO) 72 % (42-75); PLATELET COUNT 620 x10^3/uL (130-400); RED BLOOD COUNT 3.82 x10^6/uL (4.38-5.82); RED CELL DISTRIBUTION WIDTH 16.8 % (9.4-14.8)
[2020-01-07 04:48] LABS: ALANINE AMINOTRANSFERASE 18 U/L (12-78); ALBUMIN 2.6 g/dL (3.4-5.0); ANION GAP 3 mmol/L (5-15); CALCIUM 8.9 mg/dL (8.5-10.1); CHLORIDE 105 mmol/L (98-107)
[2020-01-07 04:55] LABS: ALKALINE PHOSPHATASE 93 U/L (45-117); BILIRUBIN,TOTAL 0.2 mg/dL (0.2-1.0); TOTAL PROTEIN 6.7 g/dL (6.4-8.2)
[2020-01-07] MEDS: ALBUTEROL-IPRATROPIUM MDI INH INH SCH ×4 (05:02→20:25)
[2020-01-07 07:54] VITALS: BP 109/62
[2020-01-07] MEDS: POLYETHYLENE GLYCOL 17 GM PACKET NG SCH ×2 (09:00→21:00)
[2020-01-07] MEDS: SENNA/DOCUSATE TABLET PO SCH (09:00)
[2020-01-07] MEDS: HYDROcodone/APAP 10/325 MG TABLET PO PRN ×4 (10:19→22:20)
[2020-01-07] MEDS: ENOXAPARIN 40 MG/0.4 ML SQ SCH (10:19)
[2020-01-07] MEDS: PREGABALIN 150 MG CAPSULE PO SCH ×2 (10:19→20:25)
[2020-01-07] MEDS: CYCLOBENZAPRINE 10 MG TABLET PO SCH ×3 (10:19→20:25)
[2020-01-07] MEDS: LISINOPRIL 20 MG TABLET PO SCH ×2 (10:20→21:00)
[2020-01-07] MEDS: GUAIFENESIN ER 600 MG TABLET PO SCH ×2 (10:21→20:25)
[2020-01-07 13:36] VITALS: BP 111/75
[2020-01-07 19:19] VITALS: BP 102/64
[2020-01-07] MEDS: RIFAMPIN 300 MG CAPSULE PO SCH (20:25)
[2020-01-08] MEDS: CEFAZOLIN PMX 2GM/50ML 50 ML IVPB SCH ×3 (02:20→18:19)
[2020-01-08] MEDS: HYDROcodone/APAP 10/325 MG TABLET PO PRN ×6 (02:20→22:07)
[2020-01-08 02:25] VITALS: BP 113/73
[2020-01-08] MEDS: ALBUTEROL-IPRATROPIUM MDI INH INH SCH ×4 (06:23→22:06)
[2020-01-08 07:00] VITALS: BP 118/80
[2020-01-08] MEDS: CYCLOBENZAPRINE 10 MG TABLET PO SCH ×3 (08:16→22:06)
[2020-01-08] MEDS: GUAIFENESIN ER 600 MG TABLET PO SCH ×2 (08:16→22:06)
[2020-01-08] MEDS: POLYETHYLENE GLYCOL 17 GM PACKET NG SCH ×2 (08:17→21:00)
[2020-01-08] MEDS: RIFAMPIN 300 MG CAPSULE PO SCH ×2 (08:17→22:07)
[2020-01-08] MEDS: LISINOPRIL 20 MG TABLET PO SCH ×2 (08:17→22:07)
[2020-01-08] MEDS: PREGABALIN 150 MG CAPSULE PO SCH ×2 (08:17→22:07)
[2020-01-08] MEDS: SENNA/DOCUSATE TABLET PO SCH (08:17)
[2020-01-08] MEDS: ENOXAPARIN 40 MG/0.4 ML SQ SCH (10:19)
[2020-01-08] MEDS: MORPHINE SULFATE 4 MG/ML, 1ML IVPush PRN ×2 (12:34→20:24)
[2020-01-08 14:58] VITALS: BP 145/83
[2020-01-08 19:32] VITALS: BP 121/73
[2020-01-09 01:59] VITALS: BP 131/91
[2020-01-09] MEDS: HYDROcodone/APAP 10/325 MG TABLET PO PRN ×5 (02:05→21:09)
[2020-01-09] MEDS: CEFAZOLIN PMX 2GM/50ML 50 ML IVPB SCH ×3 (02:05→19:20)
[2020-01-09] MEDS: MORPHINE SULFATE 4 MG/ML, 1ML IVPush PRN ×3 (04:02→18:18)
[2020-01-09 04:33] LABS: BASOPHILS # (AUTO) 0.05 x10^3/uL (0-0.1); BASOPHILS % (AUTO) 1 % (0-1); EOSINOPHILS # (AUTO) 0.75 x10^3/uL (0-0.4); EOSINOPHILS % (AUTO) 10 % (1-7); LYMPHOCYTES # (AUTO) 1.99 x10^3/uL (1-3.4); LYMPHOCYTES % (AUTO) 26 % (22-44); MD NO; MEAN CORPUSCULAR HGB CONC 31.1 g/dL (33.2-36.2); MEAN CORPUSCULAR VOLUME 86.6 fL (81-97); MEAN PLATELET VOLUME 7.3 fL (7.4-10.4); MONOCYTES # (AUTO) 0.93 x10^3/uL (0.2-0.8); MONOCYTES % (AUTO) 12 % (2-9); NEUTROPHILS # (AUTO) 3.93 x10^3/uL (1.8-6.8); NEUTROPHILS % (AUTO) 51 % (42-75); PLATELET COUNT 559 x10^3/uL (130-400); RED BLOOD COUNT 3.82 x10^6/uL (4.38-5.82); RED CELL DISTRIBUTION WIDTH 16.2 % (9.4-14.8)
[2020-01-09 04:35] LABS: ALBUMIN 2.6 g/dL (3.4-5.0); ANION GAP 3 mmol/L (5-15); CALCIUM 9.2 mg/dL (8.5-10.1); CHLORIDE 105 mmol/L (98-107); CREATININE 0.74 mg/dL (0.7-1.3)
[2020-01-09] MEDS: ALBUTEROL-IPRATROPIUM MDI INH INH SCH ×4 (05:46→21:06)
[2020-01-09 07:18] VITALS: BP 127/81
[2020-01-09] MEDS: GUAIFENESIN ER 600 MG TABLET PO SCH ×2 (07:47→21:06)
[2020-01-09] MEDS: PREGABALIN 150 MG CAPSULE PO SCH ×2 (07:47→21:06)
[2020-01-09] MEDS: LISINOPRIL 20 MG TABLET PO SCH ×2 (07:47→21:06)
[2020-01-09] MEDS: SENNA/DOCUSATE TABLET PO SCH (07:47)
[2020-01-09] MEDS: RIFAMPIN 300 MG CAPSULE PO SCH ×2 (07:47→21:06)
[2020-01-09] MEDS: CYCLOBENZAPRINE 10 MG TABLET PO SCH ×3 (07:47→21:06)
[2020-01-09] MEDS: POLYETHYLENE GLYCOL 17 GM PACKET NG SCH ×2 (09:00→21:00)
[2020-01-09] MEDS: ENOXAPARIN 40 MG/0.4 ML SQ SCH (12:17)
[2020-01-09 12:48] VITALS: BP 127/88
[2020-01-09 20:05] VITALS: BP 144/84
[2020-01-10 02:04] VITALS: BP 165/94
[2020-01-10] MEDS: CEFAZOLIN PMX 2GM/50ML 50 ML IVPB SCH ×3 (03:14→19:32)
[2020-01-10] MEDS: HYDROcodone/APAP 10/325 MG TABLET PO PRN ×5 (03:14→20:44)
[2020-01-10] MEDS: ALBUTEROL-IPRATROPIUM MDI INH INH SCH ×4 (06:19→20:45)
[2020-01-10 07:22] VITALS: BP 144/92
[2020-01-10] MEDS: CYCLOBENZAPRINE 10 MG TABLET PO SCH ×3 (08:07→20:45)
[2020-01-10] MEDS: SENNA/DOCUSATE TABLET PO SCH (08:07)
[2020-01-10] MEDS: PREGABALIN 150 MG CAPSULE PO SCH ×2 (08:07→20:44)
[2020-01-10] MEDS: LISINOPRIL 20 MG TABLET PO SCH ×2 (08:07→20:44)
[2020-01-10] MEDS: RIFAMPIN 300 MG CAPSULE PO SCH ×2 (08:07→20:44)
[2020-01-10] MEDS: GUAIFENESIN ER 600 MG TABLET PO SCH ×2 (08:07→20:45)
[2020-01-10] MEDS: POLYETHYLENE GLYCOL 17 GM PACKET NG SCH ×2 (08:09→20:45)
[2020-01-10] MEDS: MORPHINE SULFATE 4 MG/ML, 1ML IVPush PRN ×2 (10:29→19:27)
[2020-01-10] MEDS: ENOXAPARIN 40 MG/0.4 ML SQ SCH (12:12)
[2020-01-10 12:50] VITALS: BP 141/94
[2020-01-10 21:14] VITALS: BP 129/82
[2020-01-11] MEDS: HYDROcodone/APAP 10/325 MG TABLET PO PRN ×5 (02:47→20:44)
[2020-01-11 02:48] VITALS: BP 136/84
[2020-01-11] MEDS: CEFAZOLIN PMX 2GM/50ML 50 ML IVPB SCH ×3 (03:37→20:44)
[2020-01-11] MEDS: ALBUTEROL-IPRATROPIUM MDI INH INH SCH ×4 (05:37→20:43)
[2020-01-11] MEDS: MORPHINE SULFATE 4 MG/ML, 1ML IVPush PRN ×2 (05:37→11:08)
[2020-01-11 06:34] VITALS: BP 150/92
[2020-01-11] MEDS: SENNA/DOCUSATE TABLET PO SCH (08:32)
[2020-01-11] MEDS: GUAIFENESIN ER 600 MG TABLET PO SCH ×2 (08:32→20:44)
[2020-01-11] MEDS: CYCLOBENZAPRINE 10 MG TABLET PO SCH ×3 (08:32→20:44)
[2020-01-11] MEDS: POLYETHYLENE GLYCOL 17 GM PACKET NG SCH ×2 (08:32→21:00)
[2020-01-11] MEDS: LISINOPRIL 20 MG TABLET PO SCH ×2 (08:32→20:44)
[2020-01-11] MEDS: PREGABALIN 150 MG CAPSULE PO SCH ×2 (08:32→20:44)
[2020-01-11] MEDS: RIFAMPIN 300 MG CAPSULE PO SCH ×2 (08:32→20:44)
[2020-01-11] MEDS: ENOXAPARIN 40 MG/0.4 ML SQ SCH (11:10)
[2020-01-11 13:19] VITALS: BP 144/86
[2020-01-11 19:26] VITALS: BP 137/82
[2020-01-11] MEDS: CARVEDILOL 3.125 MG TABLET PO SCH (20:44)
[2020-01-12] MEDS: HYDROcodone/APAP 10/325 MG TABLET PO PRN ×5 (01:02→22:47)
[2020-01-12 01:03] VITALS: BP 125/72
[2020-01-12] MEDS: CEFAZOLIN PMX 2GM/50ML 50 ML IVPB SCH ×3 (04:40→20:21)
[2020-01-12] MEDS: ALBUTEROL-IPRATROPIUM MDI INH INH SCH ×4 (05:47→22:45)
[2020-01-12] MEDS: CARVEDILOL 3.125 MG TABLET PO SCH ×3 (05:47→22:48)
[2020-01-12 07:30] VITALS: BP 159/90
[2020-01-12] MEDS: GUAIFENESIN ER 600 MG TABLET PO SCH ×2 (08:23→22:45)
[2020-01-12] MEDS: LISINOPRIL 20 MG TABLET PO SCH ×2 (08:23→22:50)
[2020-01-12] MEDS: PREGABALIN 150 MG CAPSULE PO SCH ×2 (08:23→22:48)
[2020-01-12] MEDS: SENNA/DOCUSATE TABLET PO SCH (08:23)
[2020-01-12] MEDS: CYCLOBENZAPRINE 10 MG TABLET PO SCH ×3 (08:23→22:46)
[2020-01-12] MEDS: RIFAMPIN 300 MG CAPSULE PO SCH ×2 (08:23→22:46)
[2020-01-12] MEDS: POLYETHYLENE GLYCOL 17 GM PACKET NG SCH ×2 (08:24→20:26)
[2020-01-12] MEDS: MORPHINE SULFATE 4 MG/ML, 1ML IVPush PRN (08:29)
[2020-01-12] MEDS: ENOXAPARIN 40 MG/0.4 ML SQ SCH (11:04)
[2020-01-12 13:20] VITALS: BP 122/77
[2020-01-12 18:38] VITALS: BP 125/84
[2020-01-13 02:45] VITALS: BP 130/77
[2020-01-13] MEDS: HYDROcodone/APAP 10/325 MG TABLET PO PRN ×3 (03:45→19:13)
[2020-01-13] MEDS: CEFAZOLIN PMX 2GM/50ML 50 ML IVPB SCH ×3 (03:46→20:20)
[2020-01-13] MEDS: ALBUTEROL-IPRATROPIUM MDI INH INH SCH ×4 (05:58→19:13)
[2020-01-13] MEDS: CARVEDILOL 3.125 MG TABLET PO SCH (05:58)
[2020-01-13 07:27] VITALS: BP 136/88
[2020-01-13] MEDS: CYCLOBENZAPRINE 10 MG TABLET PO SCH ×3 (07:52→21:41)
[2020-01-13] MEDS: GUAIFENESIN ER 600 MG TABLET PO SCH ×2 (07:52→21:36)
[2020-01-13] MEDS: PREGABALIN 150 MG CAPSULE PO SCH ×2 (07:52→21:36)
[2020-01-13] MEDS: SENNA/DOCUSATE TABLET PO SCH (07:53)
[2020-01-13] MEDS: RIFAMPIN 300 MG CAPSULE PO SCH ×2 (07:53→21:35)
[2020-01-13] MEDS: POLYETHYLENE GLYCOL 17 GM PACKET NG SCH ×2 (07:53→19:17)
[2020-01-13] MEDS: LISINOPRIL 20 MG TABLET PO SCH ×2 (07:53→21:36)
[2020-01-13] MEDS: MORPHINE SULFATE 4 MG/ML, 1ML IVPush PRN ×3 (10:29→21:35)
[2020-01-13] MEDS: ENOXAPARIN 40 MG/0.4 ML SQ SCH (12:17)
[2020-01-13 12:33] VITALS: BP 125/82
[2020-01-13] MEDS: CARVEDILOL 6.25 MG TABLET PO SCH ×2 (13:33→21:36)
[2020-01-13 20:35] VITALS: BP 106/66
[2020-01-14] MEDS: HYDROcodone/APAP 10/325 MG TABLET PO PRN ×5 (00:27→21:27)
[2020-01-14 00:28] VITALS: BP 126/88
[2020-01-14] MEDS: CEFAZOLIN PMX 2GM/50ML 50 ML IVPB SCH ×3 (04:35→19:40)
[2020-01-14 05:14] LABS: BASOPHILS # (AUTO) 0.06 x10^3/uL (0-0.1); BASOPHILS % (AUTO) 1 % (0-1); EOSINOPHILS # (AUTO) 0.59 x10^3/uL (0-0.4); EOSINOPHILS % (AUTO) 7 % (1-7); LYMPHOCYTES # (AUTO) 2.08 x10^3/uL (1-3.4); LYMPHOCYTES % (AUTO) 24 % (22-44); MD NO; MEAN CORPUSCULAR HEMOGLOBIN 27.2 pg (27.5-34.5); MEAN CORPUSCULAR HGB CONC 31.8 g/dL (33.2-36.2); MEAN CORPUSCULAR VOLUME 85.6 fL (81-97); MEAN PLATELET VOLUME 7.5 fL (7.4-10.4); MONOCYTES # (AUTO) 1.16 x10^3/uL (0.2-0.8); MONOCYTES % (AUTO) 13 % (2-9); NEUTROPHILS # (AUTO) 4.73 x10^3/uL (1.8-6.8); NEUTROPHILS % (AUTO) 55 % (42-75); PLATELET COUNT 418 x10^3/uL (130-400); RED BLOOD COUNT 4.14 x10^6/uL (4.38-5.82); RED CELL DISTRIBUTION WIDTH 15.9 % (9.4-14.8)
[2020-01-14 05:15] LABS: CHLORIDE 109 mmol/L (98-107)
[2020-01-14 05:24] LABS: ALANINE AMINOTRANSFERASE 12 U/L (12-78); ALBUMIN 2.8 g/dL (3.4-5.0); ALKALINE PHOSPHATASE 93 U/L (45-117); ANION GAP 4 mmol/L (5-15); BILIRUBIN,TOTAL 0.2 mg/dL (0.2-1.0); C-REACTIVE PROTEIN, QUANT 0.59 mg/dL (0.02-0.49); CALCIUM 9.2 mg/dL (8.5-10.1); CREATININE 0.69 mg/dL (0.7-1.3); TOTAL PROTEIN 6.9 g/dL (6.4-8.2)
[2020-01-14] MEDS: ALBUTEROL-IPRATROPIUM MDI INH INH SCH ×4 (05:32→19:07)
[2020-01-14] MEDS: CARVEDILOL 6.25 MG TABLET PO SCH ×3 (05:32→21:27)
[2020-01-14 07:01] VITALS: BP 131/80
[2020-01-14] MEDS: PREGABALIN 150 MG CAPSULE PO SCH ×2 (07:45→21:27)
[2020-01-14] MEDS: SENNA/DOCUSATE TABLET PO SCH (07:45)
[2020-01-14] MEDS: RIFAMPIN 300 MG CAPSULE PO SCH ×2 (07:45→21:27)
[2020-01-14] MEDS: POLYETHYLENE GLYCOL 17 GM PACKET NG SCH ×2 (07:45→21:00)
[2020-01-14] MEDS: CYCLOBENZAPRINE 10 MG TABLET PO SCH ×3 (07:45→21:27)
[2020-01-14] MEDS: GUAIFENESIN ER 600 MG TABLET PO SCH ×2 (07:45→21:27)
[2020-01-14] MEDS: LISINOPRIL 20 MG TABLET PO SCH ×2 (07:46→21:27)
[2020-01-14] MEDS: MORPHINE SULFATE 4 MG/ML, 1ML IVPush PRN ×3 (07:54→19:07)
[2020-01-14] MEDS: ENOXAPARIN 40 MG/0.4 ML SQ SCH (11:18)
[2020-01-14 12:21] VITALS: BP 125/77
[2020-01-14 19:25] VITALS: BP 129/81
[2020-01-15] MEDS: HYDROcodone/APAP 10/325 MG TABLET PO PRN ×3 (01:36→10:38)
[2020-01-15] MEDS: CEFAZOLIN PMX 2GM/50ML 50 ML IVPB SCH (04:00)
[2020-01-15] MEDS: MORPHINE SULFATE 4 MG/ML, 1ML IVPush PRN ×2 (04:00→08:10)
[2020-01-15 04:03] VITALS: BP 123/79
[2020-01-15] MEDS: CARVEDILOL 6.25 MG TABLET PO SCH (05:41)
[2020-01-15] MEDS: ALBUTEROL-IPRATROPIUM MDI INH INH SCH (05:41)
[2020-01-15] MEDS ORDERED: LISI-170 PO (07:40)
[2020-01-15] MEDS ORDERED: RIFA300C3 PO (07:40)
[2020-01-15] MEDS ORDERED: CYCL-259 PO (07:40)
[2020-01-15] MEDS ORDERED: Senna/Docusate PO (07:40)
[2020-01-15] MEDS ORDERED: CEFA2PLA10 IV (07:40)
[2020-01-15] MEDS ORDERED: ENOX40SY4 SQ (07:40)
[2020-01-15] MEDS ORDERED: GUAI600T31 PO (07:40)
[2020-01-15] MEDS ORDERED: CARV6.2512 PO (07:40)
[2020-01-15] MEDS: PREGABALIN 150 MG CAPSULE PO SCH (08:05)
[2020-01-15] MEDS: GUAIFENESIN ER 600 MG TABLET PO SCH (08:05)
[2020-01-15] MEDS: CYCLOBENZAPRINE 10 MG TABLET PO SCH (08:05)
[2020-01-15] MEDS: RIFAMPIN 300 MG CAPSULE PO SCH (08:05)
[2020-01-15] MEDS: POLYETHYLENE GLYCOL 17 GM PACKET NG SCH (08:05)
[2020-01-15] MEDS: SENNA/DOCUSATE TABLET PO SCH (08:05)
[2020-01-15] MEDS: LISINOPRIL 20 MG TABLET PO SCH (08:05)
[2020-01-15 08:07] VITALS: BP 136/86
== END 2020-01-15 11:26 | DRG 320 ==
LOC: ED 17:34 → EDBD 18:12 → EDIP 18:12 → 3N 21:33 → 4NE 12-24 14:54
PROVIDERS: ADMIT Internal Medicine; ATTEND Hospitalist
PROC: 0PW404Z Revision of Internal Fixation Device in Thoracic Vertebra, Open Approach (ICD-10-PCS; 2019-12-24)
PROC: 0RP60AZ Removal of Interbody Fusion Device from Thoracic Vertebral Joint, Open Approach (ICD-10-PCS; principal; 2019-12-24 09:30)
PROC: 02HV33Z Insertion of Infusion Device into Superior Vena Cava, Percutaneous Approach (ICD-10-PCS; 2020-01-01)
PROC: B5181ZA Fluoroscopy of Superior Vena Cava using Low Osmolar Contrast, Guidance (ICD-10-PCS; 2020-01-01)
PROC: B548ZZA Ultrasonography of Superior Vena Cava, Guidance (ICD-10-PCS; 2020-01-01)
DX: T84.7XXA Infection and inflammatory reaction due to other internal orthopedic prosthetic devices, implants and grafts, initial encounter (principal); A41.2 Sepsis due to unspecified staphylococcus; E87.6 Hypokalemia; Z20.828 Contact with and (suspected) exposure to other viral communicable diseases; M46.24 Osteomyelitis of vertebra, thoracic region; J44.0 Chronic obstructive pulmonary disease with (acute) lower respiratory infection; J20.9 Acute bronchitis, unspecified; Y83.1 Surgical operation with implant of artificial internal device as the cause of abnormal reaction of the patient, or of later complication, without mention of misadventure at the time of the procedure; I10 Essential (primary) hypertension; G89.29 Other chronic pain; G82.20 Paraplegia, unspecified; F17.210 Nicotine dependence, cigarettes, uncomplicated; G06.1 Intraspinal abscess and granuloma; M54.10 Radiculopathy, site unspecified; M48.00 Spinal stenosis, site unspecified; Z86.19 Personal history of other infectious and parasitic diseases; Z86.718 Personal history of other venous thrombosis and embolism; Z99.3 Dependence on wheelchair; Z98.1 Arthrodesis status; Z88.8 Allergy status to other drugs, medicaments and biological substances; Y92.009 Unspecified place in unspecified non-institutional (private) residence as the place of occurrence of the external cause
CPT/HCPCS: 36415; 36573; 71045; 72072; 72125; 72128; 72131; 72157; 72158; 80048; 80053; 80069; 80202; 82565; 82728; 83605; 83615; 83735; 84484; 84520; 84550; 85025; 85610; 85651; 86140; 86480; 87040; 87070; 87075; 87077; 87102; 87176; 87186; 87205; 87635; 93005; 93970; 96365; 99285; C1729; G0378; J0171; J0456; J0690; J0696; J1100; J1170; J1644; J1650; J1885; J2250; J2704; J2710; J3010; J3370; J3480; J3490; A9575; C1751; J0360; J2270; J2370; J7030; J7050